=== PATIENT | male | born 1960 | race Caucasian/White ===

== ENCOUNTER 2022-11-06 17:18 | Emergency (ER) | payer BC, SELFPAY ==
[2022-11-06 17:42] VITALS: BP 135/74; PULSE 55; RESP 18; TEMP 36.7; O2SAT 100
--- NOTE | 2022-11-06 18:01 | ED.EXTPRO ---
HPI - Extremity Problem General Chief complaint: Extremity Injury, Lower Stated complaint: painful lt great toe Time Seen by Provider: 11/06/22 17:52 Source: patient and RN notes reviewed Mode of arrival: ambulatory Limitations: no limitations History of Present Illness HPI Narrative: Patient presents today complaining of pain to the tip of his left great toe. Reports, ?consult to PT? to the tip of the toe for the last 2 weeks. States he, ?went taking? around the lateral nail fold last night and today he has some increased pain. He is wondering if he has an ingrown toenail. He is aware that this toenail has had fungus in it for the past 30 years. He has tried no [id number] pain relief prior to arrival. Related Data Allergies Allergy/AdvReac Type Severity Reaction Status Date / Time Sulfa (Sulfonamide Allergy Unknown Verified 11/06/22 17:48 Antibiotics) Review of Systems Review of Systems: CONSTITUTIONAL: Denies body aches, fever, chills, or sweats. EYES: Denies visual changes, redness, or discharge. ENT: Denies rhinorrhea, congestion, sore throat, or otalgia. CARDIOVASCULAR: Denies chest pain, palpitations, or edema. RESPIRATORY: Denies cough or dyspnea. GASTROINTESTINAL: Denies abdominal pain, nausea, vomiting, or diarrhea. GENITOURINARY: Denies dysuria or hematuria. SKIN: Denies rash, itching, or wounds. MUSCULOSKELETAL: Denies back pain, or myalgia.+ left 1st toe pain NEUROLOGIC: Denies headache, numbness, tingling, or weakness. PSYCH: Denies depression or anxiety. PMFSH Comments At time of signature, I have reviewed and agree with nursing past medical, surgical, social and family history unless otherwise noted. Please see nursing chart for further information. There is no relevant family history pertinent to the presenting complaint Exam Narrative: GENERAL: Well-appearing, well-nourished, and in no acute distress. HEAD: Normocephalic, atraumatic. EYES: EOMI. No redness or drainage. Conjunctivae normal. ENT: Mucous membranes pink and moist. NECK: Normal AROM. CHEST: No respiratory distress. EXTREMITIES: Left 1st toe: Tenderness to the tip of the toe at the lateral nail fold. There is some scant edema and erythema to this area as well. No drainage. Toenail is very thick and yellowed. Distal sensation intact. Capillary refill normal. Full range of motion of the toe. SKIN: Warm, dry, no rash. Capillary refill normal. NEURO: No focal deficits. Alert and oriented x3. Gait steady. PSYCH: Normal affect. No signs of depression or anxiety. Course Course Level of Care: Express Care Visit Vital Signs Vital signs: Vital Signs Temperature 98.0 F 11/06/22 17:42 Pulse Rate 55 L 11/06/22 17:42 Respiratory Rate 18 11/06/22 17:42 Blood Pressure 135/74 11/06/22 17:42 Pulse Oximetry 100 11/06/22 17:42 Oxygen Delivery Room Air 11/06/22 17:42 Temperature 98.0 F 11/06/22 17:42 Pulse Rate 55 L 11/06/22 17:42 Respiratory Rate 18 11/06/22 17:42 Blood Pressure 135/74 11/06/22 17:42 Pulse Oximetry 100 11/06/22 17:42 Oxygen Delivery Room Air 11/06/22 17:42 Reviewed. Pt has been instructed to follow up with his PCP regarding his elevated blood pressure today. MDM - Extremity (Nontraumatic) MDM Narrative Medical decision making narrative: Will treat patient with Keflex for presumed infection of the tip of his toe. Instructed to follow-up with Podiatry. anticipatory guidance given. Differential Diagnosis Differential diagnosis: Likely cellulitis and other (Ingrown toenail, onychomycosis) Critical Care Time Critical Care Time Critical Care Time: No Discharge Plan Discharge Clinical Impression: Infection of toe Patient Disposition: Home, Self-Care Condition: Stable Instructions: Antibiotic Form, Cellulitis (ED) Additional Instructions: Take the Keflex as prescribed until gone. Soak your foot daily for 15-20 minutes in warm water.
== END 2022-11-06 18:09 | disposition home or self-care (01) ==
PROVIDERS: Emergency Provider Nurse Practitioner; PCP Internal Medicine
DX: L08.9 Local infection of the skin and subcutaneous tissue, unspecified (principal)
CPT/HCPCS: 99203; G0463